=== PATIENT | male | born 1980 | race Caucasian/White ===

== ENCOUNTER 2021-12-30 08:41 | Emergency (ER) | payer OTHER ==
[2021-12-30] MEDS ORDERED: HYDROcodone/Acetaminophen 10/325 mg Tablet ONE (09:10)
[2021-12-30] MEDS ORDERED: Ibuprofen 800 MG TAB ONE (09:14)
== END 2021-12-30 10:15 | disposition home or self-care (01) ==
LOC: BURERS 08:41
DX: M54.50 Low back pain, unspecified (principal); F17.220 Nicotine dependence, chewing tobacco, uncomplicated
CPT/HCPCS: 72131

== ENCOUNTER 2023-07-11 19:05 | Emergency (ER) | payer OTHER ==
[2023-07-11 21:21] LABS: SARS-CoV-2 NAA Rapid Test Not Detected (NotDetected)
== END 2023-07-11 21:49 | disposition home or self-care (01) ==
LOC: BURERS 19:05
DX: B34.9 Viral infection, unspecified (principal); F17.220 Nicotine dependence, chewing tobacco, uncomplicated
CPT/HCPCS: 71046; 87804; U0002

== ENCOUNTER 2023-12-15 09:19 | Emergency (ER) | payer OTHER ==
[2023-12-15] MEDS ORDERED: Cephalexin 250 MG CAP ONE (09:45)
[2023-12-15] MEDS ORDERED: Sulfameth/Trimethoprim DS 800-160mg TAB ONE (09:46)
== END 2023-12-15 09:54 | disposition home or self-care (01) ==
LOC: BURERS 09:19
DX: L03.116 Cellulitis of left lower limb (principal); F17.220 Nicotine dependence, chewing tobacco, uncomplicated
CPT/HCPCS: 99283